=== PATIENT | female | born 1945 | race Caucasian/White ===

== ENCOUNTER 2021-05-17 04:21 | Day surgery (SDC) | payer OTHER, MEDICARE ==
[2021-05-16 12:38] VITALS: BMI 28.2
[2021-05-17] MEDS ORDERED: ACETAMINOPHEN 325 MG TABLET (FP) PO PRN (09:22)
[2021-05-17] MEDS ORDERED: ONDANSETRON 4 MG/2 ML VIAL IVPUSH PRN ×2 (09:22→10:18)
[2021-05-17] MEDS ORDERED: oxyCODONE HCL 5 MG TABLET PO PRN ×2 (09:22→10:18)
[2021-05-17] MEDS ORDERED: LACTATED RINGERS SOLUTION 1,000 ML IV SCH (09:30)
[2021-05-17] MEDS ORDERED: LIDOCAINE HCL/PF 2% SDV 5ML VIAL ONE (09:30)
[2021-05-17] MEDS ORDERED: MIDAZOLAM HCL 2 MG/2 ML SINGLE DOSE VIAL ONE (09:31)
[2021-05-17] MEDS ORDERED: PROPOFOL 20 ML ONE (09:31)
[2021-05-17] MEDS ORDERED: ONDANSETRON 4 MG/2 ML VIAL ONE (09:58)
[2021-05-17] MEDS ORDERED: DEXAMETHASONE SOD PHOSPHATE 4 MG/1 ML VIAL ONE (09:58)
[2021-05-17] MEDS ORDERED: IBUPROFEN 800 MG/8 ML IJ IVPB PRN (10:18)
[2021-05-17] MEDS ORDERED: IBUPROFEN 600 MG TABLET (FP) PO PRN (10:18)
[2021-05-17] MEDS ORDERED: ELECTROLYTE-148 SOLN 1,000 ML IV SCH (10:30)
[2021-05-17 11:37] VITALS: TEMP 97.8
[2021-05-17 12:18] VITALS: BP 130/60; PULSE 60
== END 2021-05-17 12:10 | disposition home or self-care (01) ==
LOC: JASU-SURG 04:21
PROVIDERS: ATTEND Obstetrics & Gynecology
PROC: 0UB98ZZ Excision of Uterus, Via Natural or Artificial Opening Endoscopic (ICD-10-PCS; principal; 2021-05-17 09:00)
DX: N95.0 Postmenopausal bleeding (principal); D25.0 Submucous leiomyoma of uterus
CPT/HCPCS: 82962; 88305-TC; 94760